=== PATIENT | female | born 1975 | race Caucasian/White ===

== ENCOUNTER 2017-10-23 18:23 | Emergency (ER) | payer OTHER ==
[~2017-10-23] VITALS: Ht 160 cm; Wt 59.3 kg
[2017-10-23 18:28] VITALS: Ht 160 cm; Wt 59.3 kg
[2017-10-23 20:35] LABS: URINE BLOOD (Dip) POC Trace-lysed (NEGATIVE)
[2017-10-23] MEDS ORDERED: IBUPROFEN 800 MG TAB PO ONE (22:00)
[2017-10-23] MEDS ORDERED: HYDROCODONE/APAP (10/325) TAB PO ONE (22:00)
--- NOTE | 2017-10-23 22:47 | RADRPT ---
PROCEDURE: CT BRAIN WITHOUT CONTRAST CLINICAL INDICATION: 42-year-old female with trauma. TECHNIQUE: The study was performed utilizing a GE [employer] VCT 64-slice CT scanner. Direct axia l sections were obtained from the foramen magnum to the vertex without the use of intravenous contra st material. Sagittal and coronal reformations were obtained. One or more the following dose reduct ion techniques were utilized: automated exposure control, adjustment of the mA and/or kV according t o patient's size and/or the use of iterative reconstruction technique. DICOM images are available. T he images were viewed on a PACS workstation. CTD/vol = 45.0 mGy; Total Exam DLP = 720.2 mGy-cm. COMPARISON: None. FINDINGS: The ventricles have a normal size, shape and position. There is no evidence for mass effect or midl ine shift. There are no intracranial areas of abnormal attenuation. There is no evidence for acute intra or extra-axial blood. The bony calvarium is intact. The partially visualized paranasal sinuse s and mastoid air cells are without abnormal soft tissue. IMPRESSION: Unremarkable noncontrast CT scan of the brain. .Fabricio Salgado MD, Date Time Electronically viewed and signed by .Fabricio Salgado MD, on 10/23/2017 22:46 .Marvin/
[2017-10-23] MEDS ORDERED: HYDR-902 PO (23:25)
--- NOTE | 2017-10-23 23:28 | ERD ---
ER Documentation Chief Complaint Chief Complaint headache, neck pain, left facialpain w/ numbness since this morning HPI This is a 42-year-old female who states she had a headache gradual onset this morning located in the bitemporal region mostly behind the left orbit is also complaining of some slight tingling to the left cheek. She says the tingling is almost gone now. She says she has photophobia. The headache is throbbing. There is no phonophobia but it does get worse with position change. She has never had a headache like this before the headache is currently mild to moderate. She has no vomiting nausea and focal neurological complaints other than mentioned above. No aura or visual scotomas ROS All systems reviewed and are negative except as per history of present illness. Medications Home Meds Active Scripts Hydrocodone/Acetaminophen ([place] 10-325 Tablet) 1 Each Tablet, 1 TAB PO Q6H Y for PAIN, #20 TAB Prov:ELISHA RICHARDS DO 10/23/17 Allergies Allergies: Coded Allergies: No Known Allergy (Unverified , 10/23/17) PMhx/Soc Medical and Surgical Hx: pt denies Surgical Hx History of Surgery: No Anesthesia Reaction: No Hx Neurological Disorder: No Hx Cardiac Disorders: No Hx Psychiatric Problems: No Hx Miscellaneous Medical Probl: Yes (thyroid deficiency) Hx Alcohol Use: Yes (sometimes) Hx Substance Use: No Hx Tobacco Use: No Smoking Status: Never smoker FmHx Family History: No coronary disease Physical Exam Vitals Vital Signs Date Time Temp Pulse Resp B/P Pulse Ox O2 Delivery O2 Flow Rate FiO2 10/23/17 18:28 98.7 60 20 114/58 100 Physical Exam Const: Well-developed, well-nourished Head: Atraumatic, normocephalic Eyes: Normal Conjunctiva, PERRLA, EOMI, normal sclera, no nystagmus ENT: Normal External Ears, Nose and Mouth, moist mucus membranes. Neck: Full range of motion. No meningismus, no lymphadenopathy. Resp: Clear to auscultation bilaterally, no wheezing, rhonchi, rales Cardio: Regular rate and rhythm, no murmurs, S1 S2 present Abd: Soft, non tender x 4, non distended. Normal bowel sounds, no guarding or rebound, no pulsitile abdominal masses or bruits Skin: No petechiae or rashes, no ecchymosis , no maculopapular rash Back: No midline or flank tenderness Ext: No cyanosis, or edema, FROM x 4, normal inspection, neurovascularly intact x 4 Neur: Awake and alert, STR 5/5 x 4, sensation intact x 4, no focal findings, cerebellum intact there is no facial numbness Psych: Normal Mood and Affect Results 24 hrs Laboratory Tests Test 10/23/17 20:34 Bedside Urine pH (LAB) 7.0 Bedside Urine Protein (LAB) Negative Bedside Urine Glucose (UA) Negative Bedside Urine Ketones (LAB) Negative Bedside Urine Blood Trace-lysed Bedside Urine Nitrite (LAB) Negative Bedside Urine Leukocyte Esterase (L Negative Current Medications Medications (Trade) Dose Ordered Sig/[place] Route PRN Reason Start Time Stop Time Status Last Admin Dose Admin Ibuprofen (Motrin) 800 mg ONCE ONCE PO 10/23/17 22:00 10/23/17 22:01 DC 10/23/17 21:36 Acetaminophen/ Hydrocodone Bitart ([place] (10/325)) 1 tab ONCE ONCE PO 10/23/17 22:00 10/23/17 22:01 DC 10/23/17 21:36 Procedures/MDM PROCEDURE: CT BRAIN WITHOUT CONTRAST CLINICAL INDICATION: 42-year-old female with trauma. TECHNIQUE: The study was performed utilizing a [employer] VCT 64-slice CT scanner. Direct axial sections were obtained from the foramen magnum to the vertex without the use of intravenous contrast material. Sagittal and coronal reformations were obtained. One or more the following dose reduction techniques were utilized: automated exposure control, adjustment of the mA and/or kV according to patient's size and/or the use of iterative reconstruction technique. DICOM images are available. The images were viewed on a PACS workstation. CTD/vol = 45.0 mGy; Total Exam DLP = 720.2 mGy-cm. COMPARISON: None. FINDINGS: The ventricles have a normal size, shape and position. There is no evidence for mass effect or midline shift. There are no intracranial areas of abnormal attenuation. There is no evidence for acute intra or extra-axial blood. The bony calvarium is intact. The partially visualized paranasal sinuses and mastoid air cells are without abnormal soft tissue. IMPRESSION: Unremarkable noncontrast CT scan of the brain. .Fabricio Salgado MD, MD Date Time Electronically viewed and signed by .Fabricio Salgado MD, MD on 10/23/2017 22:46 .M/ CC: ELISHA RICHARDS DO Patient's CAT scan is negative. The patient may have had a complex migraine. Her symptoms are resolved now. We will discharge home with [place] and follow-up with her primary Departure Diagnosis: Primary Impression: Headache Headache type: unspecified Headache chronicity pattern: unspecified pattern Intractability: not intractable Qualified Code: R51 - Nonintractable headache, unspecified chronicity pattern, unspecified headache type Condition: Stable Patient Instructions: Self-Care for Headaches Referrals: CHRISTOFER BASS (PCP) ELISHA RICHARDS DO Oct 23, 2017 23:28
[2017-10-23 23:42] VITALS: BP 94/50; PULSE 58; RESP 17; TEMP 98.3
== END 2017-10-23 23:42 | disposition home or self-care (01) ==
LOC: FTE 18:23
DX: R51 Headache (principal)
CPT/HCPCS: 70450; 81003

== ENCOUNTER 2018-08-23 15:00 | Emergency (ER) | END 2018-08-23 20:57 | disposition home or self-care (01) ==

== ENCOUNTER 2019-04-08 20:24 | Emergency (ER) | payer OTHER ==
[~2019-04-08] VITALS: Wt 60.2 kg
[~2019-04-08 20:24] MED LIST: HYDR-3980 PO; OMEP20CA16 PO; RANI150T35 PO
--- NOTE | 2019-04-08 22:23 | ERD ---
ER Documentation Chief Complaint Chief Complaint ST X'S 2 WEEKS HPI This is a 43-year-old female who presents here in emergency department with complaints of throat pain for about 2 weeks, coughing for about 3 weeks. LMP: 03/24/2019. G1, . Denies headache, head injury, loss of consciousness, dizziness, neck pain, neck stiffness, throat pain, difficulty swallowing, difficulty breathing lying flat, shoulder pain, chest pain, back pain, abdominal pain, nausea, vomiting, constipation, diarrhea, urinary symptoms, or possibility being , loss of bowel and bladder control, trauma, injury, falls, difficulty walking due to pain, numbness or tingling sensation, calf pain, recent travel, recent major surgery in the last 3 weeks, calf pain, recent long travel, recent exposure to any illness, recent antibiotic use in the last 3 months, fever, chills, seizures. Past medical history: Hypothyroidism. Medication: Levothyroxine. Surgical history: Denies. Social: Denies smoking, use of alcoholic beverages, use of illegal drugs. ROS All systems reviewed and are negative except as per history of present illness. Medications Home Meds Active Scripts Albuterol Sulfate* (Proair HFA*) 8.5 Gm Hfa.aer.ad, 2 PUFF INH Q4H PRN for WHEEZING AND SOB, #1 INHALER Prov:PASILAVIC CASEY F 04/09/19 Ibuprofen* (Motrin*) 600 Mg Tab, 600 MG PO Q6H PRN for PAIN AND OR ELEVATED TEMP, #30 TAB Prov:PASILACARMELAARTIEAR F 04/09/19 Benzonatate* (Tessalon Perle*) 100 Mg Capsule, 100 MG PO Q8H PRN for COUGH, #15 CAP Prov:PASILABANARTIEAR F 04/09/19 Azithromycin* (Zithromax*) 250 Mg Tablet, 250 MG PO .BreannaPACK DIRECTED, #6 TAB TAKE 500 MG (2 TABS) THE FIRST DAY THEN 250 MG (1 TAB) DAYS 2-5 Prov:PASILABANARTIEAR F 04/09/19 Ranitidine Hcl* (Zantac*) 150 Mg Tablet, 150 MG PO BID PRN for EPIGASTRIC PAIN, #30 TAB Prov:REE CHEEMA PA-C 08/23/18 Omeprazole* (Omeprazole*) 20 Mg Capsule.dr, 20 MG PO DAILY, #20 Prov:REE CHEEMA PA-C 08/23/18 Hydrocodone/Acetaminophen ([place] 10-325 Tablet) 1 Each Tablet, 1 TAB PO Q6H PRN for PAIN, #20 TAB Prov:ELISHA RICHARDS ArcenioNuzhat [employer] 10/23/17 Allergies Allergies: Coded Allergies: No Known Allergy (Unverified , 10/23/17) PMhx/Soc History of Surgery: No Anesthesia Reaction: No Hx Neurological Disorder: No Hx Cardiac Disorders: No Hx Psychiatric Problems: No Hx Miscellaneous Medical Probl: Yes (thyroid deficiency) Hx Alcohol Use: Yes (sometimes) Hx Substance Use: No Hx Tobacco Use: No Smoking Status: Never smoker Physical Exam Vitals Vital Signs Date Temp Pulse Resp B/P (MAP) Pulse Ox O2 O2 Flow FiO2 Time Delivery Rate 04/09/19 97.9 61 18 108/63 97 Room Air 00:54 (78) 04/08/19 98.7 94 18 116/65 97 21:10 (82) Physical Exam Const: No acute distress Head: Atraumatic Eyes: Normal Conjunctiva ENT: Normal External Ears, Nose and Mouth. Bilateral ears: TMs are not erythematous. No bleeding. No discharge. No hearing loss. No mastoid tenderness. Nose: Midline. There is no frontal maxillary sinus tenderness to palpation. Throat: Uvula is midline and nondisplaced. Tonsils are +1 bilaterally with redness without exudates. Tolerating secretions. Patent airway. Speaks full and clear sentences. No tripoding. Neck: Full range of motion. No meningismus. No nuchal rigidity. No signs of meningeal irritation. Resp: Clear to auscultation bilaterally. No accessory muscle use in breathing . Cardio: Regular rate and rhythm, no murmurs Abd: Soft, non tender, non distended. Normal bowel sounds Skin: No petechiae or rashes. Color appears normal for ethnicity. No skin tenting. No signs of severe dehydration. Back: No midline or flank tenderness Ext: No cyanosis, or edema Neur: Awake and alert. No neurological deficits. Psych: Normal Mood and Affect Results 24 hrs Laboratory Tests Test 04/08/19 22:16 POC Beta HCG, Qualitative NEGATIVE Procedures/MDM Diagnostic tests: POC urine : Negative. Rapid strep screen: Negative. Chest x-ray: No acute cardiopulmonary disease demonstrated. Treatment: Refuses. Re-evaluation: No episode of emesis here in the emergency department. Denies headache, neck pain, difficulty swallowing. No drooling. No signs of airway obstruction. No accessory muscle use in breathing. Lung sounds are clear to auscultation. No neurological deficits. Patient and family member stated that they are comfortable going home. Differential diagnosis I have low suspicion for sepsis, severe or serious bacterial infection, meni ngitis, mastoiditis, peritonsillar abscess, bronchospasm, pneumonia, pneumothorax, hemothorax. Final diagnosis: Prescription: Azithromycin. Tessalon Perles. Zofran. Motrin. Ventolin inhaler. Follow-up with PCP in the next 24-48 hours. Come back here in the emergency department for any new symptoms or any worsening symptoms. All questions and concerns were answered. Patient and family members verbalized understanding and agreed with plan of care. Hemodynamically stable on discharge. Departure Diagnosis: Primary Impression: Bronchitis Additional Impressions: Sore throat Pharyngitis Condition: Stable Additional Instructions: Follow-up with PCP in the next 24-48 hours. Come back here in the emergency department for any new symptoms or any worsening symptoms. VIC VELA April 08, 2019 22:23
[2019-04-09] MEDS ORDERED: AZIT250T PO (00:35)
[2019-04-09] MEDS ORDERED: BENZ-6 PO (00:35)
[2019-04-09] MEDS ORDERED: ALBU8.5H8 INH (00:36)
[2019-04-09] MEDS ORDERED: IBUP-1542 PO (00:36)
[2019-04-09 00:54] VITALS: BP 108/63; PULSE 61; RESP 18
== END 2019-04-09 00:56 | disposition home or self-care (01) ==
LOC: FTE 20:24
DX: J02.9 Acute pharyngitis, unspecified (principal); E03.9 Hypothyroidism, unspecified; J40 Bronchitis, not specified as acute or chronic
CPT/HCPCS: 71046; 81025; 87880